=== PATIENT | female | born 1965 | race American Indian/Alaskan Native ===

== ENCOUNTER 2021-12-27 17:03 | Inpatient (IN) | payer MEDICAID ==
[2021-12-28 06:54] LABS: Basophils % (Auto) 0.7 % (0.0-1.8); Eosinophils # (Auto) 0.1 K/mm3 (0.0-0.4); Eosinophils % (Auto) 2.6 % (0.0-4.3); Hematocrit 37.7 % (30.3-42.9); Hemoglobin 12.6 gm/dl (10.1-14.3); Lymphocytes # (Auto) 1.5 K/mm3 (1.2-5.4); Lymphocytes % (Auto) 33.7 % (13.4-35.0); Mean Corpuscular HGB Conc 33 % (30-34); Mean Corpuscular Volume 80 fl (79-97); Monocytes # (Auto) 0.4 K/mm3 (0.0-0.8); Monocytes % (Auto) 8.5 % (0.0-7.3); Platelet Count 206 K/mm3 (140-440); Red Blood Count 4.73 M/mm3 (3.65-5.03)
[2021-12-28 07:16] LABS: Alanine Aminotransferase 14 units/L (7-56); Albumin 3.7 g/dL (3.9-5); BUN/Creatinine Ratio 16; Blood Urea Nitrogen 22 mg/dL (7-17); Calcium 9.6 mg/dL (8.4-10.2); HDL Cholesterol 62 mg/dL (40-59); Hemolysis Index 3; LDL Cholesterol,Direct 94 mg/dL (50-130)
[2021-12-28 07:19] LABS: Hepatitis B Surface Antigen Non-Reactive (Negative)
--- NOTE | 2021-12-28 08:32 | History and Physical Report ---
GP History & Physical - History of Present Illness Date of admission: 12/28/21 Date of Examination: 12/28/21 Reason for Admission: Danger to self, Danger to others, Failure of Outpatient Treatment, Severe anxiety/depression Chief Complaint: Depression and hallucinations History of Present Illness: The patient is a 56 year old female with history of depression and cocaine use disorder who presented to the crisis center requesting for mental health evaluation. Per note, the patient has been severely depressed since the of her son about a year now. The patient endorses visual hallucination, cycling moods from tearful to laughing, the patient has been noncompliant with psychotropic medications. The patient was seen this morning. She is calm, alert and oriented x3. The patient states she was feeling lonely and sad; "I came because of my habit." The patient reports crack cocaine use for the past 35 years, states she last used about 4 days ago. The patient endorses being depressed, rates as 5/10. She repo rts stressors such as the of her only son, mother and sister within a 3 year period. She denies any current cravings for crack. She denies any suicidal/homicidal ideation and denies hallucinations. No withdrawal symptoms noted. PAST PSYCHIATRIC HISTORY: Diagnoses: Depression, Cocaine use disorder Suicide attempts or Self-harm behavior: Denies Prior psychiatric hospitalizations: Yes Substance Abuse history: Crack cocaine, Alcohol Previous psychiatric medications tried: unable to recall Outpatient treatment: Unknown PAST MEDICAL HISTORY: None reported Family Psychiatric History: None reported or documented SOCIAL HISTORY Marital Status: Single Living Arrangements: Lives alone Employment Status: Disabled Access to guns/weapons: Denies Education: 8th grade History of Abuse:Denies Legal History: Denies REVIEW OF SYSTEMS Constitutional: Negative for weight loss ENT: Negative for stridor Respiratory: Negative for cough or hemoptysis All other systems reviewed and are negative MENTAL STATUS EXAMINATION General Appearance and Behavior: Age appropriate, wearing appropriate clothes, cooperative, polite with questioning, good eye contact Cooperation: cooperative Psychomotor Behavior: Psychomotor normal Mood: Depressed Affect and affective range: congruent with stated mood Thought Process: Goal directed Thought Content: Reality oriented Speech: Normal volume, Regular rate and rhythm Suicidal Ideation: Denies Homicidal Ideation: Denies Hallucination: Denies Delusions: None elicited Impulse Control: Limited Insight and Judgment: Limited Memory: Intact Attention:attentive Orientation: Alert and oriented Diagnoses: Major depressive disorder Cocaine use disorder, severe Treatment Plan Patient admitted for inpatient psychiatric evaluation, medication adjustment and close monitoring The patient's behavior, mood, sleep and appetite will be closely monitored. Patient enrolled in individual and group therapeutic sessions and encouraged to attend. Patient provided with a safe and structured environment. Patient's physical health needs will be addressed by the Hospitalist. Hospitalist Consulted Labs including CBC, CMP, Lipid profile and Hemoglobin A1C levels ordered for baseline reference Social Assessment will be completed and the Correspondent will work with patient and family to ensure a suitable and safe disposition Medication adjustment will be made as clinically indicated Continue home meds Usual Wellness Religious/Preservation: - Start Trazodone 50 mg po QHS & 50 mg po QHS PRN between 10 PM & 2 AM for insomnia - Start Melatonin 5 mg po QHS to promote circadian rhythm The patient agreed on the treatment plan, understood the risk, benefit, alternative treatment, potential consequence of no treatment, and gave informed consent. Estimated days: 7 Post hospital care: primary care provider, psychiatric provider Case staffed with Dr. Waldron Legal Status: Voluntary Patient Problems: Medications and Allergies Allergies Allergy/AdvReac Type Severity Reaction Status Date / Time No Known Allergies Allergy Unverified 12/27/21 17:05 Results - Results Labs/Vitals: Laboratory Last Values WBC 4.3 K/mm3 (4.5-11.0) L 12/28/21 06:30 RBC 4.73 M/mm3 (3.65-5.03) 12/28/21 06:30 Hgb 12.6 gm/dl (10.1-14.3) 12/28/21 06:30 Hct 37.7 % (30.3-42.9) 12/28/21 06:30 MCV 80 fl (79-97) 12/28/21 06:30 MCH 27 pg (28-32) L 12/28/21 06:30 MCHC 33 % (30-34) 12/28/21 06:30 RDW 14.0 % (13.2-15.2) 12/28/21 06:30 Plt Count 206 K/mm3 (140-440) 12/28/21 06:30 Lymph % (Auto) 33.7 % (13.4-35.0) 12/28/21 06:30 [place] % (Auto) 8.5 % (0.0-7.3) H 12/28/21 06:30 Eos % (Auto) 2.6 % (0.0-4.3) 12/28/21 06:30 Baso % (Auto) 0.7 % (0.0-1.8) 12/28/21 06:30 Lymph # (Auto) 1.5 K/mm3 (1.2-5.4) 12/28/21 06:30 [place] # (Auto) 0.4 K/mm3 (0.0-0.8) 12/28/21 06:30 Eos # (Auto) 0.1 K/mm3 (0.0-0.4) 12/28/21 06:30 Baso # (Auto) 0.0 K/mm3 (0.0-0.1) 12/28/21 06:30 Seg Neutrophils % 54.5 % (40.0-70.0) 12/28/21 06:30 Seg Neutrophils # 2.4 K/mm3 (1.8-7.7) 12/28/21 06:30 Sodium 140 mmol/L (137-145) 12/28/21 06:30 Potassium 3.9 mmol/L (3.6-5.0) 12/28/21 06:30 Chloride 105.5 mmol/L (98-107) 12/28/21 06:30 Carbon Dioxide 25 mmol/L (22-30) 12/28/21 06:30 Anion Gap 13 mmol/L 12/28/21 06:30 BUN 22 mg/dL (7-17) H 12/28/21 06:30 Creatinine 1.4 mg/dL (0.6-1.2) H 12/28/21 06:30 Estimated GFR 47 ml/min 12/28/21 06:30 BUN/Creatinine Ratio 16 % 12/28/21 06:30 Glucose 99 mg/dL (65-100) 12/28/21 06:30 Hemoglobin A1c 5.8 % (4-6) 12/28/21 06:30 Calcium 9.6 mg/dL (8.4-10.2) 12/28/21 06:30 Total Bilirubin < 0.20 mg/dL (0.1-1.2) 12/28/21 06:30 AST 13 units/L (5-40) 12/28/21 06:30 ALT 14 units/L (7-56) 12/28/21 06:30 Alkaline Phosphatase 71 units/L (35-129) 12/28/21 06:30 Total Protein 6.3 g/dL (6.3-8.2) 12/28/21 06:30 Albumin 3.7 g/dL (3.9-5) L 12/28/21 06:30 Albumin/Globulin Ratio 1.4 % 12/28/21 06:30 Triglycerides 130 mg/dL (2-149) 12/28/21 06:30 Cholesterol 168 mg/dL (50-199) 12/28/21 06:30 LDL Cholesterol Direct 94 mg/dL (50-130) 12/28/21 06:30 HDL Cholesterol 62 mg/dL (40-59) H 12/28/21 06:30 Cholesterol/HDL Ratio 2.70 % 12/28/21 06:30 TSH 1.230 mlU/mL (0.270-4.200) 12/28/21 06:30 Hepatitis A IgM Ab Non-reactive (NonReactive) 12/28/21 06:30 Hep Bs Antigen Non-reactive (Negative) 12/28/21 06:30 Hep B Core IgM Ab Non-reactive (NonReactive) 12/28/21 06:30 Last Vital Signs Temp 98.2 F 12/28/21 03:10 Pulse 67 12/28/21 03:10 Resp 17 12/28/21 03:10 BP 142/90 12/28/21 03:10 Pulse Ox 100 12/28/21 03:10 Physical Examination - Constitutional Vitals: Vital Signs Temp Pulse Resp BP Pulse Ox 98.2 F 67 17 142/90 100 12/28/21 03:10 12/28/21 03:10 12/28/21 03:10 12/28/21 03:10 12/28/21 03:10 Temperature -Last 24 Hours Temperature 98.2 F Mental Status Exam - Vital signs Last Vital Signs Temp 98.2 F 12/28/21 03:10 Pulse 67 12/28/21 03:10 Resp 17 12/28/21 03:10 BP 142/90 12/28/21 03:10 Pulse Ox 100 12/28/21 03:10 Physician Certification - Certification Statement Physician Certification Statement: This is an acknowledgement statement that JAYDON Lan CAIN is a 56 year old F who requires inpatient psychiatric admission for treatment which could reasonably be expected to improve the patient's condition for Estimated period of time patient will need to remain in the hospital: [ ] Plan for post-hospital care: [ ]
--- NOTE | 2021-12-28 09:39 | Consultation ---
History of Present Illness - Reason for Consult Consult date: 12/28/21 Medical management Requesting physician: JOHANNA SIMPSON - History of Present Illness 56-year-old female patient with significant past medical history of cocaine abuse, history of depression was admitted to [facility] with history of severe anxiety and depression failure of outpatient treatment as well as danger to self and danger to others. Patient was evaluated by psychiatrist, and is being managed appropriately in the [facility]. Hospitalist service was consulted for medical management as per patient and per medical records patient does not have significant medical needs No history of diabetes mellitus, no history of hypertension, no history of coronary artery disease, no history of acute CVA or TIA Patient confirms that she does not have any medical problems Not on any medical related home medications Past History Past Medical History: other (Anxiety disorder, depression). denies: diabetes, hypertension, hyperlipidemia Past Surgical History: No surgical history Social history: smoking. denies: alcohol abuse, prescription drug abuse Family history: no significant family history Medications and Allergies Allergies Allergy/AdvReac Type Severity Reaction Status Date / Time No Known Allergies Allergy Unverified 12/27/21 17:05 Home Medications Medication Instructions Recorded Confirmed Last Taken Type Citalopram Hydrobromide [celeXA] 40 mg PO HS 12/28/21 12/28/21 Unknown History Vortioxetine Hydrobromide 10 mg PO DAILY 12/28/21 12/28/21 Unknown History [Trintellix] hydrOXYzine PAMOATE [Vistaril] 25 mg PO BID 12/28/21 12/28/21 Unknown History risperiDONE [RisperDAL] 2 mg PO HS 12/28/21 12/28/21 Unknown History Review of Systems Constitutional: weakness, no weight loss, no weight gain Ears, nose, mouth and throat: no nasal congestion, no nasal discharge Cardiovascular: no chest pain, no orthopnea, no palpitations Respiratory: no cough, no hemoptysis Gastrointestinal: no nausea, no vomiting, no diarrhea Genitourinary Female: no flank pain, no dysuria Musculoskeletal: no myalgias, no arthritis Integumentary: no rash, no lesions Neurological: no weakness, no numbness, no seizures Psychiatric: anxiety, depression Endocrine: no cold intolerance, no heat intolerance Hematologic/Lymphatic: no easy bruising, no easy bleeding Allergic/Immunologic: no urticaria, no allergic rhinitis Exam - Constitutional Vitals: Temp Pulse Resp BP Pulse Ox 98.2 F 67 17 142/90 100 12/28/21 03:10 12/28/21 03:10 12/28/21 03:10 12/28/21 03:10 12/28/21 03:10 General appearance: Present: no acute distress, well-nourished, obese - EENT Eyes: Present: PERRL, EOM intact - Neck Neck: Present: supple, normal ROM - Respiratory Respiratory effort: normal Respiratory: bilateral: diminished, negative: rales, rhonchi - Cardiovascular Rhythm: regular Heart Sounds: Present: S1 & S2 - Extremities Extremities: no ischemia, No edema - Abdominal General gastrointestinal: Present: soft, non-tender, non-distended, normal bowel sounds - Integumentary Integumentary: Present: clear, warm - Musculoskeletal Musculoskeletal: strength equal bilaterally, generalized weakness - Psychiatric Psychiatric: appropriate mood/affect, cooperative - Neurologic Neurologic: moves all extremities Results - Labs CBC & Chem 7: 12/28/21 06:30 12/28/21 06:30 Labs: Abnormal lab results 12/28/21 12/28/21 Range/Units 06:30 06:30 WBC 4.3 L (4.5-11.0) K/mm3 MCH 27 L (28-32) pg [place] % (Auto) 8.5 H (0.0-7.3) % BUN 22 H (7-17) mg/dL Creatinine 1.4 H (0.6-1.2) mg/dL Albumin 3.7 L (3.9-5) g/dL HDL Cholesterol 62 H (40-59) mg/dL Assessment and Plan --Major depressive disorder; Management per psych team --Cocaine abuse disorder; Counseling done strongly advised to quit recreational drug use Supportive care --Acute kidney injury; Vasomotor nephropathy Plenty of oral fluids, monitor renal function Avoid nephrotoxin, renal dosing of medications Closely monitor creatinine levels --Ongoing tobacco use; Smoking cessation counseling done Strongly advised to quit tobacco use Advised nicotine patch as needed --DVT prophylaxis; SCDs while resting Ambulate as tolerated -- Full CODE STATUS; We will closely monitor the patient and adjust the management as needed Plan of care reviewed with the patient and her nurse Thank you for this consultation We will follow the patient along with you Call us with questions
[2021-12-28] MEDS ORDERED: CITALOPRAM 20 MG TAB PO SCH (11:00)
[2021-12-28] MEDS: hydrOXYzine PAMOATE 25 MG CAP PO SCH ×2 (11:09→21:25)
[2021-12-28 13:18] LABS: Hepatitis C Virus Antibody Non-Reactive (NonReactive)
[2021-12-28] MEDS: CITALOPRAM 20 MG TAB PO SCH (21:25)
[2021-12-28] MEDS: traZODone 50 MG TAB PO SCH (21:25)
[2021-12-29] MEDS: hydrOXYzine PAMOATE 25 MG CAP PO SCH ×2 (09:02→21:32)
--- NOTE | 2021-12-29 09:13 | Progress Note ---
Subjective Date of service: 12/29/21 Subjective Comment: 12/29: The patient was seen today. She states she is doing well but continues to endorse depression , rates as 2/10. She reports sleep and appetite as good. The patient denies any current suicidal/homicidal ideation and denies hallucinations. REVIEW OF SYSTEMS Constitutional: Negative for weight loss ENT: Negative for stridor Respiratory: Negative for cough or hemoptysis All other systems reviewed and are negative MENTAL STATUS EXAMINATION General Appearance and Behavior: Age appropriate, wearing appropriate clothes, cooperative, polite with questioning, good eye contact Cooperation: cooperative Psychomotor Behavior: Psychomotor normal Mood: Depressed Affect and affective range: congruent with stated mood Thought Process: Goal directed Thought Content: Reality oriented Speech: Normal volume, Regular rate and rhythm Suicidal Ideation: Denies Homicidal Ideation: Denies Hallucination: Denies Delusions: None elicited Impulse Control: Limited Insight and Judgment: Limited Memory: Intact Attention:attentive Orientation: Alert and oriented Diagnoses: Major depressive disorder Cocaine use disorder, severe Treatment Plan Patient admitted for inpatient psychiatric evaluation, medication adjustment and close monitoring The patient's behavior, mood, sleep and appetite will be closely monitored. Patient enrolled in individual and group therapeutic sessions and encouraged to attend. Patient provided with a safe and structured environment. Patient's physical health needs will be addressed by the Hospitalist. Hospitalist Consulted Labs including CBC, CMP, Lipid profile and Hemoglobin A1C levels ordered for baseline reference Social Assessment will be completed and the Analytical Research Program Manager will work with patient and family to ensure a suitable and safe disposition Medication adjustment will be made as clinically indicated Continue home meds Usual Wellness Religion/Preservation: - Start Trazodone 50 mg po QHS & 50 mg po QHS PRN between 10 PM & 2 AM for insomnia - Start Melatonin 5 mg po QHS to promote circadian rhythm The patient agreed on the treatment plan, understood the risk, benefit, alternative treatment, potential consequence of no treatment, and gave informed consent. Estimated days: 6 Post hospital care: primary care provider, psychiatric provider Case staffed with Dr. Waldron Legal Status: Voluntary Patient Problems: Medications and Allergies Medications and Allergies Allergies Allergy/AdvReac Type Severity Reaction Status Date / Time No Known Allergies Allergy Unverified 12/27/21 17:05 Home Medications Medication Instructions Recorded Confirmed Last Taken Type Citalopram Hydrobromide [celeXA] 40 mg PO HS 12/28/21 12/28/21 Unknown History Vortioxetine Hydrobromide 10 mg PO DAILY 12/28/21 12/28/21 Unknown History [Trintellix] hydrOXYzine PAMOATE [Vistaril] 25 mg PO BID 12/28/21 12/28/21 Unknown History risperiDONE [RisperDAL] 2 mg PO HS 12/28/21 12/28/21 Unknown History Active Meds: Active Medications Citalopram Hydrobromide (Citalopram 20 Mg Tab) 40 mg PO QHS [facility] Last Admin: 12/28/21 21:25 Dose: 40 mg Hydroxyzine Pamoate (Hydroxyzine Pamoate 25 Mg Cap) 25 mg PO BID [facility] Last Admin: 12/29/21 09:02 Dose: 25 mg Trazodone HCl (Trazodone 50 Mg Tab) 50 mg PO QHS [facility] Last Admin: 12/28/21 21:25 Dose: 50 mg Results - Results Labs/Vitals: Laboratory Last Values WBC 4.3 K/mm3 (4.5-11.0) L 12/28/21 06:30 RBC 4.73 M/mm3 (3.65-5.03) 12/28/21 06:30 Hgb 12.6 gm/dl (10.1-14.3) 12/28/21 06:30 Hct 37.7 % (30.3-42.9) 12/28/21 06:30 MCV 80 fl (79-97) 12/28/21 06:30 MCH 27 pg (28-32) L 12/28/21 06:30 MCHC 33 % (30-34) 12/28/21 06:30 RDW 14.0 % (13.2-15.2) 12/28/21 06:30 Plt Count 206 K/mm3 (140-440) 12/28/21 06:30 Lymph % (Auto) 33.7 % (13.4-35.0) 12/28/21 06:30 [place] % (Auto) 8.5 % (0.0-7.3) H 12/28/21 06:30 Eos % (Auto) 2.6 % (0.0-4.3) 12/28/21 06:30 Baso % (Auto) 0.7 % (0.0-1.8) 12/28/21 06:30 Lymph # (Auto) 1.5 K/mm3 (1.2-5.4) 12/28/21 06:30 [place] # (Auto) 0.4 K/mm3 (0.0-0.8) 12/28/21 06:30 Eos # (Auto) 0.1 K/mm3 (0.0-0.4) 12/28/21 06:30 Baso # (Auto) 0.0 K/mm3 (0.0-0.1) 12/28/21 06:30 Seg Neutrophils % 54.5 % (40.0-70.0) 12/28/21 06:30 Seg Neutrophils # 2.4 K/mm3 (1.8-7.7) 12/28/21 06:30 Sodium 140 mmol/L (137-145) 12/28/21 06:30 Potassium 3.9 mmol/L (3.6-5.0) 12/28/21 06:30 Chloride 105.5 mmol/L (98-107) 12/28/21 06:30 Carbon Dioxide 25 mmol/L (22-30) 12/28/21 06:30 Anion Gap 13 mmol/L 12/28/21 06:30 BUN 22 mg/dL (7-17) H 12/28/21 06:30 Creatinine 1.4 mg/dL (0.6-1.2) H 12/28/21 06:30 Estimated GFR 47 ml/min 12/28/21 06:30 BUN/Creatinine Ratio 16 % 12/28/21 06:30 Glucose 99 mg/dL (65-100) 12/28/21 06:30 Hemoglobin A1c 5.8 % (4-6) 12/28/21 06:30 Calcium 9.6 mg/dL (8.4-10.2) 12/28/21 06:30 Total Bilirubin < 0.20 mg/dL (0.1-1.2) 12/28/21 06:30 AST 13 units/L (5-40) 12/28/21 06:30 ALT 14 units/L (7-56) 12/28/21 06:30 Alkaline Phosphatase 71 units/L (35-129) 12/28/21 06:30 Total Protein 6.3 g/dL (6.3-8.2) 12/28/21 06:30 Albumin 3.7 g/dL (3.9-5) L 12/28/21 06:30 Albumin/Globulin Ratio 1.4 % 12/28/21 06:30 Triglycerides 130 mg/dL (2-149) 12/28/21 06:30 Cholesterol 168 mg/dL (50-199) 12/28/21 06:30 LDL Cholesterol Direct 94 mg/dL (50-130) 12/28/21 06:30 HDL Cholesterol 62 mg/dL (40-59) H 12/28/21 06:30 Cholesterol/HDL Ratio 2.70 % 12/28/21 06:30 TSH 1.230 mlU/mL (0.270-4.200) 12/28/21 06:30 Hepatitis A IgM Ab Non-reactive (NonReactive) 12/28/21 06:30 Hep Bs Antigen Non-reactive (Negative) 12/28/21 06:30 Hep B Core IgM Ab Non-reactive (NonReactive) 12/28/21 06:30 Hepatitis C Antibody Non-reactive (NonReactive) 12/28/21 06:30 Last Vital Signs Temp 98.4 F 12/28/21 19:23 Pulse 76 12/28/21 19:23 Resp 17 12/28/21 19:23 BP 135/77 12/28/21 19:23 Pulse Ox 96 12/28/21 19:23
--- NOTE | 2021-12-29 17:39 | Progress Note ---
Assessment and Plan Assessment and plan: Patient is comfortable no new complaints --Major depressive disorder; Management per psych team No suicidal thoughts or ideation --Cocaine abuse disorder; Counseling done strongly advised to quit recreational drug use Supportive care --Acute kidney injury; Vasomotor nephropathy Plenty of oral fluids, monitor renal function Avoid nephrotoxin, renal dosing of medications Closely monitor creatinine levels --Ongoing tobacco use; Smoking cessation counseling done Strongly advised to quit tobacco use Advised nicotine patch as needed --DVT prophylaxis; SCDs while resting Ambulate as tolerated -- Full CODE STATUS; We will closely monitor the patient and adjust the management as needed Plan of care reviewed with the patient and her nurse Thank you for this consultation We will follow the patient along with you Continue current management Call us with questions History Interval history: I have seen and examined the patient in the activity room today Patient's chart and medications reviewed No new events reported by nursing Patient is sitting in the activity room alert awake cheerful Patient says she enjoyed her lunch She is getting better Vital signs noted Hospitalist Physical - Constitutional Vitals: Temp Pulse Resp BP Pulse Ox 98.2 F 73 16 144/96 99 12/29/21 07:45 12/29/21 07:42 12/29/21 07:45 12/29/21 07:45 12/29/21 07:42 General appearance: Present: no acute distress, well-nourished, obese - EENT Eyes: Present: PERRL, EOM intact - Neck Neck: Present: supple, normal ROM - Respiratory Respiratory effort: normal Respiratory: bilateral: diminished, negative: rales, rhonchi, wheezing - Cardiovascular Rhythm: regular Heart Sounds: Present: S1 & S2 - Extremities Extremities: no ischemia, No edema - Abdominal General gastrointestinal: soft, non-tender, non-distended, normal bowel sounds - Integumentary Integumentary: Present: clear, warm - Psychiatric Psychiatric: appropriate mood/affect, cooperative - Neurologic Neurologic: CNII-XII intact, moves all extremities Results - Labs CBC & Chem 7: 12/28/21 06:30 12/28/21 06:30 Labs: Laboratory Last Values WBC 4.3 K/mm3 (4.5-11.0) L 12/28/21 06:30 RBC 4.73 M/mm3 (3.65-5.03) 12/28/21 06:30 Hgb 12.6 gm/dl (10.1-14.3) 12/28/21 06:30 Hct 37.7 % (30.3-42.9) 12/28/21 06:30 MCV 80 fl (79-97) 12/28/21 06:30 MCH 27 pg (28-32) L 12/28/21 06:30 MCHC 33 % (30-34) 12/28/21 06:30 RDW 14.0 % (13.2-15.2) 12/28/21 06:30 Plt Count 206 K/mm3 (140-440) 12/28/21 06:30 Lymph % (Auto) 33.7 % (13.4-35.0) 12/28/21 06:30 [place] % (Auto) 8.5 % (0.0-7.3) H 12/28/21 06:30 Eos % (Auto) 2.6 % (0.0-4.3) 12/28/21 06:30 Baso % (Auto) 0.7 % (0.0-1.8) 12/28/21 06:30 Lymph # (Auto) 1.5 K/mm3 (1.2-5.4) 12/28/21 06:30 [place] # (Auto) 0.4 K/mm3 (0.0-0.8) 12/28/21 06:30 Eos # (Auto) 0.1 K/mm3 (0.0-0.4) 12/28/21 06:30 Baso # (Auto) 0.0 K/mm3 (0.0-0.1) 12/28/21 06:30 Seg Neutrophils % 54.5 % (40.0-70.0) 12/28/21 06:30 Seg Neutrophils # 2.4 K/mm3 (1.8-7.7) 12/28/21 06:30 Sodium 140 mmol/L (137-145) 12/28/21 06:30 Potassium 3.9 mmol/L (3.6-5.0) 12/28/21 06:30 Chloride 105.5 mmol/L (98-107) 12/28/21 06:30 Carbon Dioxide 25 mmol/L (22-30) 12/28/21 06:30 Anion Gap 13 mmol/L 12/28/21 06:30 BUN 22 mg/dL (7-17) H 12/28/21 06:30 Creatinine 1.4 mg/dL (0.6-1.2) H 12/28/21 06:30 Estimated GFR 47 ml/min 12/28/21 06:30 BUN/Creatinine Ratio 16 % 12/28/21 06:30 Glucose 99 mg/dL (65-100) 12/28/21 06:30 Hemoglobin A1c 5.8 % (4-6) 12/28/21 06:30 Calcium 9.6 mg/dL (8.4-10.2) 12/28/21 06:30 Total Bilirubin < 0.20 mg/dL (0.1-1.2) 12/28/21 06:30 AST 13 units/L (5-40) 12/28/21 06:30 ALT 14 units/L (7-56) 12/28/21 06:30 Alkaline Phosphatase 71 units/L (35-129) 12/28/21 06:30 Total Protein 6.3 g/dL (6.3-8.2) 12/28/21 06:30 Albumin 3.7 g/dL (3.9-5) L 12/28/21 06:30 Albumin/Globulin Ratio 1.4 % 12/28/21 06:30 Triglycerides 130 mg/dL (2-149) 12/28/21 06:30 Cholesterol 168 mg/dL (50-199) 12/28/21 06:30 LDL Cholesterol Direct 94 mg/dL (50-130) 12/28/21 06:30 HDL Cholesterol 62 mg/dL (40-59) H 12/28/21 06:30 Cholesterol/HDL Ratio 2.70 % 12/28/21 06:30 TSH 1.230 mlU/mL (0.270-4.200) 12/28/21 06:30 Hepatitis A IgM Ab Non-reactive (NonReactive) 12/28/21 06:30 Hep Bs Antigen Non-reactive (Negative) 12/28/21 06:30 Hep B Core IgM Ab Non-reactive (NonReactive) 12/28/21 06:30 Hepatitis C Antibody Non-reactive (NonReactive) 12/28/21 06:30 Marks/IV: Voiding Method Toilet Active Medications - Current Medications Current Medications: Generic Name Dose Route Start Last Admin Trade Name Freq PRN Reason Stop Dose Admin Citalopram Hydrobromide 40 mg 12/28/21 22:00 12/28/21 21:25 Citalopram 20 Mg Tab PO 40 mg QHS JIMI Administration Hydroxyzine Pamoate 25 mg 12/28/21 11:00 12/29/21 09:02 Hydroxyzine Pamoate 25 Mg Cap PO 25 mg BID JIMI Administration Trazodone HCl 50 mg 12/28/21 22:00 12/28/21 21:25 Trazodone 50 Mg Tab PO 50 mg QHS JIMI Administration
[2021-12-29] MEDS: CITALOPRAM 20 MG TAB PO SCH (21:31)
[2021-12-29] MEDS: traZODone 50 MG TAB PO SCH (21:32)
--- NOTE | 2021-12-30 08:57 | Progress Note ---
Subjective - Reason for Consult Consult date: 12/30/21 Reason for consult: Suicidal ideation - Chief Complaint Chief complaint: 12/30: The patient was seen today. She states she is doing well states depression is better, rates as 2/10. She reports sleep and appetite as good. The patient denies any current suicidal/homicidal ideation and denies hallucinations. No changes made today. 12/29: The patient was seen today. She states she is doing well but continues to endorse depression , rates as 2/10. She reports sleep and appetite as good. The patient denies any current suicidal/homicidal ideation and denies hallucinations. REVIEW OF SYSTEMS Constitutional: Negative for weight loss ENT: Negative for stridor Respiratory: Negative for cough or hemoptysis All other systems reviewed and are negative MENTAL STATUS EXAMINATION General Appearance and Behavior: Age appropriate, wearing appropriate clothes, cooperative, polite with questioning, good eye contact Cooperation: cooperative Psychomotor Behavior: Psychomotor normal Mood: Depressed Affect and affective range: congruent with stated mood Thought Process: Goal directed Thought Content: Reality oriented Speech: Normal volume, Regular rate and rhythm Suicidal Ideation: Denies Homicidal Ideation: Denies Hallucination: Denies Delusions: None elicited Impulse Control: Limited Insight and Judgment: Limited Memory: Intact Attention:attentive Orientation: Alert and oriented Diagnoses: Major depressive disorder Cocaine use disorder, severe Treatment Plan Patient admitted for inpatient psychiatric evaluation, medication adjustment and close monitoring The patient's behavior, mood, sleep and appetite will be closely monitored. Patient enrolled in individual and group therapeutic sessions and encouraged to attend. Patient provided with a safe and structured environment. Patient's physical health needs will be addressed by the Hospitalist. Hospitalist Consulted Labs including CBC, CMP, Lipid profile and Hemoglobin A1C levels ordered for baseline reference Social Assessment will be completed and the Rn Team Leader will work with patient and family to ensure a suitable and safe disposition Medication adjustment will be made as clinically indicated Continue home meds Usual Wellness Episcopal/Preservation: - Start Trazodone 50 mg po QHS & 50 mg po QHS PRN between 10 PM & 2 AM for insomnia - Start Melatonin 5 mg po QHS to promote circadian rhythm The patient agreed on the treatment plan, understood the risk, benefit, alternative treatment, potential consequence of no treatment, and gave informed consent. Estimated days: 6 Post hospital care: primary care provider, psychiatric provider Case staffed with Dr. Waldron Legal Status: Voluntary Patient Problems: Medications and Allergies Mental Status Exam - Vital signs Last Vital Signs Temp 98.2 F 12/29/21 19:30 Pulse 71 12/29/21 19:30 Resp 20 12/29/21 19:30 BP 172/99 12/29/21 19:30 Pulse Ox 99 12/29/21 19:30
[2021-12-30] MEDS: hydrOXYzine PAMOATE 25 MG CAP PO SCH ×2 (09:13→21:17)
--- NOTE | 2021-12-30 13:58 | Progress Note ---
Assessment and Plan Assessment and plan: Patient is comfortable no new complaints --Major depressive disorder; Management per psych team No suicidal thoughts or ideation --Cocaine abuse disorder; Counseling done strongly advised to quit recreational drug use Supportive care --Acute kidney injury; Vasomotor nephropathy Plenty of oral fluids, monitor renal function Avoid nephrotoxin, renal dosing of medications Closely monitor creatinine levels --Ongoing tobacco use; Smoking cessation counseling done Strongly advised to quit tobacco use Advised nicotine patch as needed --DVT prophylaxis; SCDs while resting Ambulate as tolerated -- Full CODE STATUS; We will closely monitor the patient and adjust the management as needed Plan of care reviewed with the patient and her nurse Continue current management Call us with questions History Interval history: I have seen and examined the patient at the bedside Patient's chart and medications reviewed Patient is sleeping in her room, easily awakens No new complaints Anxious to go home Vital signs noted Hospitalist Physical - Constitutional Vitals: Temp Pulse Resp BP Pulse Ox 98.2 F 71 20 172/99 99 12/29/21 19:30 12/29/21 19:30 12/29/21 19:30 12/29/21 19:30 12/29/21 19:30 General appearance: Present: no acute distress, well-nourished, obese - EENT Eyes: Present: PERRL, EOM intact - Neck Neck: Present: supple, normal ROM - Respiratory Respiratory effort: normal Respiratory: bilateral: diminished, negative: rales, rhonchi, wheezing - Cardiovascular Rhythm: regular Heart Sounds: Present: S1 & S2 - Extremities Extremities: no ischemia, No edema - Abdominal General gastrointestinal: soft, non-tender, non-distended, normal bowel sounds - Integumentary Integumentary: Present: clear, warm - Psychiatric Psychiatric: appropriate mood/affect, cooperative - Neurologic Neurologic: CNII-XII intact, moves all extremities Results - Labs CBC & Chem 7: 12/28/21 06:30 12/28/21 06:30 Labs: Laboratory Last Values WBC 4.3 K/mm3 (4.5-11.0) L 12/28/21 06:30 RBC 4.73 M/mm3 (3.65-5.03) 12/28/21 06:30 Hgb 12.6 gm/dl (10.1-14.3) 12/28/21 06:30 Hct 37.7 % (30.3-42.9) 12/28/21 06:30 MCV 80 fl (79-97) 12/28/21 06:30 MCH 27 pg (28-32) L 12/28/21 06:30 MCHC 33 % (30-34) 12/28/21 06:30 RDW 14.0 % (13.2-15.2) 12/28/21 06:30 Plt Count 206 K/mm3 (140-440) 12/28/21 06:30 Lymph % (Auto) 33.7 % (13.4-35.0) 12/28/21 06:30 [place] % (Auto) 8.5 % (0.0-7.3) H 12/28/21 06:30 Eos % (Auto) 2.6 % (0.0-4.3) 12/28/21 06:30 Baso % (Auto) 0.7 % (0.0-1.8) 12/28/21 06:30 Lymph # (Auto) 1.5 K/mm3 (1.2-5.4) 12/28/21 06:30 [place] # (Auto) 0.4 K/mm3 (0.0-0.8) 12/28/21 06:30 Eos # (Auto) 0.1 K/mm3 (0.0-0.4) 12/28/21 06:30 Baso # (Auto) 0.0 K/mm3 (0.0-0.1) 12/28/21 06:30 Seg Neutrophils % 54.5 % (40.0-70.0) 12/28/21 06:30 Seg Neutrophils # 2.4 K/mm3 (1.8-7.7) 12/28/21 06:30 Sodium 140 mmol/L (137-145) 12/28/21 06:30 Potassium 3.9 mmol/L (3.6-5.0) 12/28/21 06:30 Chloride 105.5 mmol/L (98-107) 12/28/21 06:30 Carbon Dioxide 25 mmol/L (22-30) 12/28/21 06:30 Anion Gap 13 mmol/L 12/28/21 06:30 BUN 22 mg/dL (7-17) H 12/28/21 06:30 Creatinine 1.4 mg/dL (0.6-1.2) H 12/28/21 06:30 Estimated GFR 47 ml/min 12/28/21 06:30 BUN/Creatinine Ratio 16 % 12/28/21 06:30 Glucose 99 mg/dL (65-100) 12/28/21 06:30 Hemoglobin A1c 5.8 % (4-6) 12/28/21 06:30 Calcium 9.6 mg/dL (8.4-10.2) 12/28/21 06:30 Total Bilirubin < 0.20 mg/dL (0.1-1.2) 12/28/21 06:30 AST 13 units/L (5-40) 12/28/21 06:30 ALT 14 units/L (7-56) 12/28/21 06:30 Alkaline Phosphatase 71 units/L (35-129) 12/28/21 06:30 Total Protein 6.3 g/dL (6.3-8.2) 12/28/21 06:30 Albumin 3.7 g/dL (3.9-5) L 12/28/21 06:30 Albumin/Globulin Ratio 1.4 % 12/28/21 06:30 Triglycerides 130 mg/dL (2-149) 12/28/21 06:30 Cholesterol 168 mg/dL (50-199) 12/28/21 06:30 LDL Cholesterol Direct 94 mg/dL (50-130) 12/28/21 06:30 HDL Cholesterol 62 mg/dL (40-59) H 12/28/21 06:30 Cholesterol/HDL Ratio 2.70 % 12/28/21 06:30 TSH 1.230 mlU/mL (0.270-4.200) 12/28/21 06:30 Hepatitis A IgM Ab Non-reactive (NonReactive) 12/28/21 06:30 Hep Bs Antigen Non-reactive (Negative) 12/28/21 06:30 Hep B Core IgM Ab Non-reactive (NonReactive) 12/28/21 06:30 Hepatitis C Antibody Non-reactive (NonReactive) 12/28/21 06:30 Marks/IV: Voiding Method Toilet Active Medications - Current Medications Current Medications: Generic Name Dose Route Start Last Admin Trade Name Freq PRN Reason Stop Dose Admin Citalopram Hydrobromide 40 mg 12/28/21 22:00 12/29/21 21:31 Citalopram 20 Mg Tab PO 40 mg QHS JIMI Administration Hydroxyzine Pamoate 25 mg 12/28/21 11:00 12/30/21 09:13 Hydroxyzine Pamoate 25 Mg Cap PO 25 mg BID JIMI Administration Trazodone HCl 50 mg 12/28/21 22:00 12/29/21 21:32 Trazodone 50 Mg Tab PO 50 mg QHS JIMI Administration
[2021-12-30] MEDS: CITALOPRAM 20 MG TAB PO SCH (21:18)
[2021-12-30] MEDS: traZODone 50 MG TAB PO SCH (21:18)
[2021-12-31] MEDS: hydrOXYzine PAMOATE 25 MG CAP PO SCH ×3 (08:50→21:07)
--- NOTE | 2021-12-31 09:06 | Progress Note ---
Subjective Date of service: 12/31/21 Subjective Comment: 12/31: The patient was seen today. She states she is doing well, rates depression as 1/10. She reports sleep and appetite as good. The patient denies any current suicidal/homicidal ideation and denies hallucinations. No changes made today. 12/30: The patient was seen today. She states she is doing well states depression is better, rates as 2/10. She reports sleep and appetite as good. The patient denies any current suicidal/homicidal ideation and denies hallucinations. No changes made today. 12/29: The patient was seen today. She states she is doing well but continues to endorse depression , rates as 2/10. She reports sleep and appetite as good. The patient denies any current suicidal/homicidal ideation and denies hallucinations. REVIEW OF SYSTEMS Constitutional: Negative for weight loss ENT: Negative for stridor Respiratory: Negative for cough or hemoptysis All other systems reviewed and are negative MENTAL STATUS EXAMINATION General Appearance and Behavior: Age appropriate, wearing appropriate clothes, cooperative, polite with questioning, good eye contact Cooperation: cooperative Psychomotor Behavior: Psychomotor normal Mood:"OK" Affect and affective range: congruent with stated mood Thought Process: Goal directed Thought Content: Reality oriented Speech: Normal volume, Regular rate and rhythm Suicidal Ideation: Denies Homicidal Ideation: Denies Hallucination: Denies Delusions: None elicited Impulse Control: Limited Insight and Judgment: Limited Memory: Intact Attention:attentive Orientation: Alert and oriented Diagnoses: Major depressive disorder Cocaine use disorder, severe Treatment Plan Patient admitted for inpatient psychiatric evaluation, medication adjustment and close monitoring The patient's behavior, mood, sleep and appetite will be closely monitored. Patient enrolled in individual and group therapeutic sessions and encouraged to attend. Patient provided with a safe and structured environment. Patient's physical health needs will be addressed by the Hospitalist. Hospitalist Consulted Labs including CBC, CMP, Lipid profile and Hemoglobin A1C levels ordered for baseline reference Social Assessment will be completed and the Application Engineer will work with patient and family to ensure a suitable and safe disposition Medication adjustment will be made as clinically indicated Continue home meds Usual Wellness Zoroastrian/Preservation: - Start Trazodone 50 mg po QHS & 50 mg po QHS PRN between 10 PM & 2 AM for insomnia - Start Melatonin 5 mg po QHS to promote circadian rhythm The patient agreed on the treatment plan, understood the risk, benefit, alternative treatment, potential consequence of no treatment, and gave informed consent. Estimated days: 6 Post hospital care: primary care provider, psychiatric provider Case staffed with Dr. Waldron Legal Status: Voluntary Patient Problems: Medications and Allergies Mental Status Exam Medications and Allergies Allergies Allergy/AdvReac Type Severity Reaction Status Date / Time No Known Allergies Allergy Unverified 12/27/21 17:05 Home Medications Medication Instructions Recorded Confirmed Last Taken Type Citalopram Hydrobromide [celeXA] 40 mg PO HS 12/28/21 12/28/21 Unknown History Vortioxetine Hydrobromide 10 mg PO DAILY 12/28/21 12/28/21 Unknown History [Trintellix] hydrOXYzine PAMOATE [Vistaril] 25 mg PO BID 12/28/21 12/28/21 Unknown History risperiDONE [RisperDAL] 2 mg PO HS 12/28/21 12/28/21 Unknown History Active Meds: Active Medications Citalopram Hydrobromide (Citalopram 20 Mg Tab) 40 mg PO QHS [facility] Last Admin: 12/30/21 21:18 Dose: 40 mg Hydroxyzine Pamoate (Hydroxyzine Pamoate 25 Mg Cap) 25 mg PO BID [facility] Last Admin: 12/31/21 08:50 Dose: 25 mg Trazodone HCl (Trazodone 50 Mg Tab) 50 mg PO QHS [facility] Last Admin: 12/30/21 21:18 Dose: 50 mg Results - Results Labs/Vitals: Laboratory Last Values WBC 4.3 K/mm3 (4.5-11.0) L 12/28/21 06:30 RBC 4.73 M/mm3 (3.65-5.03) 12/28/21 06:30 Hgb 12.6 gm/dl (10.1-14.3) 12/28/21 06:30 Hct 37.7 % (30.3-42.9) 12/28/21 06:30 MCV 80 fl (79-97) 12/28/21 06:30 MCH 27 pg (28-32) L 12/28/21 06:30 MCHC 33 % (30-34) 12/28/21 06:30 RDW 14.0 % (13.2-15.2) 12/28/21 06:30 Plt Count 206 K/mm3 (140-440) 12/28/21 06:30 Lymph % (Auto) 33.7 % (13.4-35.0) 12/28/21 06:30 [place] % (Auto) 8.5 % (0.0-7.3) H 12/28/21 06:30 Eos % (Auto) 2.6 % (0.0-4.3) 12/28/21 06:30 Baso % (Auto) 0.7 % (0.0-1.8) 12/28/21 06:30 Lymph # (Auto) 1.5 K/mm3 (1.2-5.4) 12/28/21 06:30 [place] # (Auto) 0.4 K/mm3 (0.0-0.8) 12/28/21 06:30 Eos # (Auto) 0.1 K/mm3 (0.0-0.4) 12/28/21 06:30 Baso # (Auto) 0.0 K/mm3 (0.0-0.1) 12/28/21 06:30 Seg Neutrophils % 54.5 % (40.0-70.0) 12/28/21 06:30 Seg Neutrophils # 2.4 K/mm3 (1.8-7.7) 12/28/21 06:30 Sodium 140 mmol/L (137-145) 12/28/21 06:30 Potassium 3.9 mmol/L (3.6-5.0) 12/28/21 06:30 Chloride 105.5 mmol/L (98-107) 12/28/21 06:30 Carbon Dioxide 25 mmol/L (22-30) 12/28/21 06:30 Anion Gap 13 mmol/L 12/28/21 06:30 BUN 22 mg/dL (7-17) H 12/28/21 06:30 Creatinine 1.4 mg/dL (0.6-1.2) H 12/28/21 06:30 Estimated GFR 47 ml/min 12/28/21 06:30 BUN/Creatinine Ratio 16 % 12/28/21 06:30 Glucose 99 mg/dL (65-100) 12/28/21 06:30 POC Glucose 169 mg/dL (70-105) H 12/30/21 16:55 Hemoglobin A1c 5.8 % (4-6) 12/28/21 06:30 Calcium 9.6 mg/dL (8.4-10.2) 12/28/21 06:30 Total Bilirubin < 0.20 mg/dL (0.1-1.2) 12/28/21 06:30 AST 13 units/L (5-40) 12/28/21 06:30 ALT 14 units/L (7-56) 12/28/21 06:30 Alkaline Phosphatase 71 units/L (35-129) 12/28/21 06:30 Total Protein 6.3 g/dL (6.3-8.2) 12/28/21 06:30 Albumin 3.7 g/dL (3.9-5) L 12/28/21 06:30 Albumin/Globulin Ratio 1.4 % 12/28/21 06:30 Triglycerides 130 mg/dL (2-149) 12/28/21 06:30 Cholesterol 168 mg/dL (50-199) 12/28/21 06:30 LDL Cholesterol Direct 94 mg/dL (50-130) 12/28/21 06:30 HDL Cholesterol 62 mg/dL (40-59) H 12/28/21 06:30 Cholesterol/HDL Ratio 2.70 % 12/28/21 06:30 TSH 1.230 mlU/mL (0.270-4.200) 12/28/21 06:30 Hepatitis A IgM Ab Non-reactive (NonReactive) 12/28/21 06:30 Hep Bs Antigen Non-reactive (Negative) 12/28/21 06:30 Hep B Core IgM Ab Non-reactive (NonReactive) 12/28/21 06:30 Hepatitis C Antibody Non-reactive (NonReactive) 12/28/21 06:30 Last Vital Signs Temp 98.7 F 12/30/21 19:06 Pulse 72 12/30/21 19:06 Resp 16 12/30/21 19:06 BP 144/87 12/30/21 19:06 Pulse Ox 98 12/30/21 19:06
--- NOTE | 2021-12-31 12:36 | XRay Report ---
CHEST 1 VIEW 12/31/2021 11:13 AM INDICATION / CLINICAL INFORMATION: USP placement. COMPARISON: None available. FINDINGS: SUPPORT DEVICES: None. HEART / MEDIASTINUM: No significant abnormality. LUNGS / PLEURA: No significant pulmonary or pleural abnormality. No pneumothorax. ADDITIONAL FINDINGS: No significant additional findings. IMPRESSION: 1. No acute findings. Signer Name: Malick Park Jr, MD Signed: 12/31/2021 12:31 PM Workstation Name: [id number]
[2021-12-31] MEDS: CITALOPRAM 20 MG TAB PO SCH (21:06)
[2021-12-31] MEDS: traZODone 50 MG TAB PO SCH (21:06)
[2022-01-01 08:42] VITALS: BP 117/85
--- NOTE | 2022-01-01 09:13 | Discharge Summary ---
Providers - Providers Date of Admission: 12/28/21 05:18 Date of discharge: 01/01/22 Attending physician: JOHANNA SIMPSON MD 12/28/21 03:40 Consult to Physician [CONS] Routine Comment: Consulting Provider: LUIS DERAS Physician Instructions: Reason For Exam: New psych admission Primary care physician: OUTSIDE SALESPERSON Hospitalization Reason for admission: Suicidal ideation Admitting Diagnosis: F33.3 - MAJOR DEPRESSV DISORDER, RECURRENT, SEVERE W PSYCH SYMPTOMS Condition: Stable Hospital course: The patient was provided inpatient psychiatric treatment with safe and supportive environment, group/individual therapy, psychiatric medication, medication adjustment, adverse effect monitor, medical evaluation, medical treatment, social service assessment, social support meeting, placement assessment and psycho-education. The patients mood, cognition, behavior, motivation, compliance to treatment and appreciation on family/social support are improved and stabilized. At the time of discharge, the patient had no suicidal ideas, no homicidal ideas, no aggressive thoughts, no endangering behavior and no debilitating adverse effects. The patient agreed on the treatment plan, understood the risk, benefit, alternative treatment, potential consequence of no treatment, and gave informed consent. Progress Note: 12/31: The patient was seen today. She states she is doing well, rates depression as 1/10. She reports sleep and appetite as good. The patient denies any current suicidal/homicidal ideation and denies hallucinations. No changes made today. 12/30: The patient was seen today. She states she is doing well states depres oziel is better, rates as 2/10. She reports sleep and appetite as good. The patient denies any current suicidal/homicidal ideation and denies hallucinations. No changes made today. 12/29: The patient was seen today. She states she is doing well but continues to endorse depression , rates as 2/10. She reports sleep and appetite as good. The patient denies any current suicidal/homicidal ideation and denies hallucinations. Disposition: HOME / SELF CARE / HOMELESS Allergies/Adverse Reactions: Allergies No Known Allergies Allergy (Unverified 12/27/21 17:05) Vital Signs: Last Vital Signs Temp 97.6 F 01/01/22 08:26 Pulse 70 01/01/22 08:26 Resp 16 01/01/22 08:26 BP 117/85 01/01/22 08:26 Pulse Ox 100 01/01/22 08:26 Last Lab: Laboratory Last Values WBC 4.3 K/mm3 (4.5-11.0) L 12/28/21 06:30 RBC 4.73 M/mm3 (3.65-5.03) 12/28/21 06:30 Hgb 12.6 gm/dl (10.1-14.3) 12/28/21 06:30 Hct 37.7 % (30.3-42.9) 12/28/21 06:30 MCV 80 fl (79-97) 12/28/21 06:30 MCH 27 pg (28-32) L 12/28/21 06:30 MCHC 33 % (30-34) 12/28/21 06:30 RDW 14.0 % (13.2-15.2) 12/28/21 06:30 Plt Count 206 K/mm3 (140-440) 12/28/21 06:30 Lymph % (Auto) 33.7 % (13.4-35.0) 12/28/21 06:30 [place] % (Auto) 8.5 % (0.0-7.3) H 12/28/21 06:30 Eos % (Auto) 2.6 % (0.0-4.3) 12/28/21 06:30 Baso % (Auto) 0.7 % (0.0-1.8) 12/28/21 06:30 Lymph # (Auto) 1.5 K/mm3 (1.2-5.4) 12/28/21 06:30 [place] # (Auto) 0.4 K/mm3 (0.0-0.8) 12/28/21 06:30 Eos # (Auto) 0.1 K/mm3 (0.0-0.4) 12/28/21 06:30 Baso # (Auto) 0.0 K/mm3 (0.0-0.1) 12/28/21 06:30 Seg Neutrophils % 54.5 % (40.0-70.0) 12/28/21 06:30 Seg Neutrophils # 2.4 K/mm3 (1.8-7.7) 12/28/21 06:30 Sodium 140 mmol/L (137-145) 12/28/21 06:30 Potassium 3.9 mmol/L (3.6-5.0) 12/28/21 06:30 Chloride 105.5 mmol/L (98-107) 12/28/21 06:30 Carbon Dioxide 25 mmol/L (22-30) 12/28/21 06:30 Anion Gap 13 mmol/L 12/28/21 06:30 BUN 22 mg/dL (7-17) H 12/28/21 06:30 Creatinine 1.4 mg/dL (0.6-1.2) H 12/28/21 06:30 Estimated GFR 47 ml/min 12/28/21 06:30 BUN/Creatinine Ratio 16 % 12/28/21 06:30 Glucose 99 mg/dL (65-100) 12/28/21 06:30 POC Glucose 169 mg/dL (70-105) H 12/30/21 16:55 Hemoglobin A1c 5.8 % (4-6) 12/28/21 06:30 Calcium 9.6 mg/dL (8.4-10.2) 12/28/21 06:30 Total Bilirubin < 0.20 mg/dL (0.1-1.2) 12/28/21 06:30 AST 13 units/L (5-40) 12/28/21 06:30 ALT 14 units/L (7-56) 12/28/21 06:30 Alkaline Phosphatase 71 units/L (35-129) 12/28/21 06:30 Total Protein 6.3 g/dL (6.3-8.2) 12/28/21 06:30 Albumin 3.7 g/dL (3.9-5) L 12/28/21 06:30 Albumin/Globulin Ratio 1.4 % 12/28/21 06:30 Triglycerides 130 mg/dL (2-149) 12/28/21 06:30 Cholesterol 168 mg/dL (50-199) 12/28/21 06:30 LDL Cholesterol Direct 94 mg/dL (50-130) 12/28/21 06:30 HDL Cholesterol 62 mg/dL (40-59) H 12/28/21 06:30 Cholesterol/HDL Ratio 2.70 % 12/28/21 06:30 TSH 1.230 mlU/mL (0.270-4.200) 12/28/21 06:30 Syphilis IgG/IgM Ab Reactive (NonReactive) A 12/31/21 11:54 RPR Titer Non reactive (1:1-1:2) 12/31/21 11:54 Hepatitis A IgM Ab Non-reactive (NonReactive) 12/28/21 06:30 Hep Bs Antigen Non-reactive (Negative) 12/28/21 06:30 Hep B Core IgM Ab Non-reactive (NonReactive) 12/28/21 06:30 Hepatitis C Antibody Non-reactive (NonReactive) 12/28/21 06:30 Core Measure Documentation - Palliative Care Palliative Care/ Comfort Measures: Not Applicable - Core Measures Any of the following diagnoses?: none - VTE Discharge Requirements Deep Vein Thrombosis/Pulmonary Embolism Present on Admission: No Exam - Constitutional Vitals: Temp Pulse Resp BP Pulse Ox 97.6 F 70 16 117/85 100 01/01/22 08:26 01/01/22 08:26 01/01/22 08:26 01/01/22 08:26 01/01/22 08:26 Plan Activity: advance as tolerated Weight Bearing Status: Weight Bear as Tolerated Care Plan Goals: Maintain good and stable mental health. Plan of Treatment: The patient should be compliant with medications, not to use drugs and not to drink alcohol.The patient understands that if suicidal ideas, homicidal ideas, or any endangering thoughts/behavior arise, they should immediately seek for emergent assistance including but not limited to crisis hot line and emergency room. Follow up with outpatient Psychiatrist and PCP within 7 - 14 days of discharge. Follow up with: PRIMARY CARE, [Primary Care Provider] - 7 Days Prescriptions: Citalopram [Celexa] 40 mg PO QHS 30 Days #30 tablet traZODone [Desyrel] 50 mg PO QHS 30 Days #30 tablet hydrOXYzine PAMOATE [Vistaril] 25 mg PO BID 30 Days #60 capsule
[2022-01-01] MEDS: hydrOXYzine PAMOATE 25 MG CAP PO SCH (09:23)
== END 2022-01-01 13:10 | disposition home or self-care (01) | DRG 885 ==
LOC: 3A 17:03 → UNDOADMIN 17:03 → 5A 12-28 05:18
PROVIDERS: ADMIT Psychiatry & Neurology Psychiatry; ATTEND Psychiatry & Neurology Psychiatry
DX: F33.3 Major depressive disorder, recurrent, severe with psychotic symptoms (principal); R45.851 Suicidal ideations; F14.10 Cocaine abuse, uncomplicated; N17.0 Acute kidney failure with tubular necrosis; F17.200 Nicotine dependence, unspecified, uncomplicated; Z71.6 Tobacco abuse counseling
CPT/HCPCS: 36415; 71045; 80053; 80061; 80074; 82962; 83036; 84443; 85025; 86592; 86593; 86780; G0378